=== PATIENT | male | born 1960 | race Caucasian/White ===

== ENCOUNTER 2022-06-08 13:19 | Emergency (ER) | payer MEDICARE, MEDICAID ==
[~2022-06-08] VITALS: Ht 170 cm; Wt 63.5 kg
--- NOTE | 2022-06-08 14:10 | ED GU-Male ---
General Chief Complaint: - Reproductive Stated Complaint: URINATING BLOOD Nursing Triage Note: PT TO TRIAGE WITH C/O SPOTTING BLOOD IN URINE PRIOR TO ARRIVAL. PT ALSO STATES HE HAD TROUBLE URINATING TODAY. PT SAID HE HAS HAD PROSTATE ISSUES IN THE PAST Source: patient Exam Limitations: no limitations (LUCÍA VILLEGAS APRN) History of Present Illness Date Seen by Provider: Jun 08, 2022 Time Seen by Provider: 14:58 Initial Comments 61-year-old male presents with complaints of urinary issues. States he has had reduced output over the last 2 days. States this morning he woke up to go to the bathroom, and only urinated a small amount. States there was a spot of blood after urinating this morning. States he has had this problem before, states he has issues with his prostate. States they placed him on a couple medications at that time and it went away. He is unsure what medications those were. Reports urinary frequency, and dysuria. States he feels like he has to urinate but can't or only goes a small amount. Denies fevers, abdominal pain, nausea, vomiting. Past medical history includes type 2 diabetes, heart conditions with 9 stents, malignant melanoma for which he is in remission, Alzheimer's. States he supposed be on several medications but has been out of them. Recently moved here from [place] and has not yet been able to establish primary care. States he does not drink a lot of water. (LUCÍA VILLEGAS APRN) Allergies and Home Medications Allergies Coded Allergies: amitriptyline (Verified Allergy, Unknown, 06/08/22) Patient Home Medication List Home Medication List Reviewed: Yes (LUCÍA VILLEGAS APRN) Sulfamethoxazole/Trimethoprim (Bactrim Ds Tablet) 1 Each Tablet, 1 EACH PO BID Prescribed by: Lucía Villegas on 06/08/22 151 Tamsulosin HCl (Flomax) 0.4 Mg Cap, 0.4 MG PO DAILY Prescribed by: Lucía Villegas on 06/08/22 1517 Review of Systems Review of Systems Constitutional: see HPI (LUCÍA VILLEGAS APRN) Past Bpekrcx-Mneouf-Brmonw Hx Patient Social History Tobacco Use?: No Use of E-Cig and/or Vaping dev: No Substance use?: No Alcohol Use?: No Pt feels they are or have been: No (LUCÍA VILLEGAS APRN) Immunizations Up To Date Influenza Vaccine Up-to-Date: Yes; Up-to-Date (LUCÍA VILLEGAS APRN) Past Medical History Surgery/Hospitalization HX: DM, AFIB, HLD L HIP REPLACEMENT, NECK SURGERY, BACK SURGERY, L KNEE SURGERY, EYE SURGERY, MELANOMA CANCER (LUCÍA VILLEGAS APRN) Physical Exam Vital Signs Vital Signs - First Documented 06/08/22 13:41 Temp 36.6 Pulse 97 Resp 14 B/P (MAP) 123/81 (95) (DILLON CAMACHO DO) Vital Signs Capillary Refill : (LUCÍA VILLEGAS APRN) Height, Weight, BMI Height: '" Weight: lbs. oz. kg; 21.00 BMI Method: General Appearance: WD/WN, no apparent distress Neck: supple, normal inspection Cardiovascular: regular rate, rhythm, no edema, no gallop, no JVD, no murmur Respiratory: lungs clear, normal breath sounds, no respiratory distress, no accessory muscle use Gastrointestinal: non tender, soft Back: normal inspection, no CVA tenderness Extremities: normal range of motion, normal inspection Neurologic/Psychiatric: alert, normal mood/affect Skin: normal color, warm/dry (LUCÍA VILLEGAS APRN) Progress/Results/Core Measures Suspected Sepsis SIRS Temperature: Pulse: 97 Respiratory Rate: 14 Laboratory Tests 06/08/22 14:29: White Blood Count 4.7 Blood Pressure 123 /81 Mean: 95 Laboratory Tests 06/08/22 14:29: Creatinine 0.99, Platelet Count 115L, Total Bilirubin 0.7 (LUCÍA VILLEGAS APRN) Results/Orders Lab Results Laboratory Tests Test 06/08/22 14:05 06/08/22 14:29 Range/Units Urine Color YELLOW Urine Clarity CLOUDY Urine pH 6.5 5-9 Urine Specific [place] 1.025 H 1.016-1.022 Urine Protein 2+ H NEGATIVE Urine Glucose (UA) 3+ H NEGATIVE Urine Ketones NEGATIVE NEGATIVE Urine Nitrite NEGATIVE NEGATIVE Urine Bilirubin NEGATIVE NEGATIVE Urine Urobilinogen 0.2 < = 1.0 MG/DL Urine Leukocyte Esterase TRACE H NEGATIVE Urine RBC (Auto) 3+ H NEGATIVE Urine RBC 25-50 H /HPF Urine WBC 50-100 H /HPF Urine Squamous Epithelial Cells 0-2 /HPF Urine Crystals NONE /LPF Urine Bacteria NEGATIVE /HPF Urine Casts NONE /LPF Urine Mucus NEGATIVE /LPF Urine Culture Indicated YES White Blood Count 4.7 4.3-11.0 10^3/uL Red Blood Count 4.35 4.30-5.52 10^6/uL Hemoglobin 12.1 L 13.3-17.7 g/dL Hematocrit 37 L 40-54 % Mean Corpuscular Volume 84 80-99 fL Mean Corpuscular Hemoglobin 28 25-34 pg Mean Corpuscular Hemoglobin Concent 33 32-36 g/dL Red Cell Distribution Width 14.7 H 10.0-14.5 % Platelet Count 115 L 130-400 10^3/uL Mean Platelet Volume 9.3 9.0-12.2 fL Immature Granulocyte % (Auto) 0 % Neutrophils (%) (Auto) 67 42-75 % Lymphocytes (%) (Auto) 21 12-44 % Monocytes (%) (Auto) 9 0-12 % Eosinophils (%) (Auto) 2 0-10 % Basophils (%) (Auto) 1 0-10 % Neutrophils # (Auto) 3.2 1.8-7.8 10^3/uL Lymphocytes # (Auto) 1.0 1.0-4.0 10^3/uL Monocytes # (Auto) 0.4 0.0-1.0 10^3/uL Eosinophils # (Auto) 0.1 0.0-0.3 10^3/uL Basophils # (Auto) 0.0 0.0-0.1 10^3/uL Immature Granulocyte # (Auto) 0.0 0.0-0.1 10^3/uL Percent Immature Platelet Fraction 2.9 0.0-7.6 % Sodium Level 137 135-145 MMOL/L Potassium Level 3.6 3.6-5.0 MMOL/L Chloride Level 104 98-107 MMOL/L Carbon Dioxide Level 26 21-32 MMOL/L Anion Gap 7 5-14 MMOL/L Blood Urea Nitrogen 5 L 7-18 MG/DL Creatinine 0.99 0.60-1.30 MG/DL Estimat Glomerular Filtration Rate 88 BUN/Creatinine Ratio 5 Glucose Level 269 H 70-105 MG/DL Calcium Level 9.0 8.5-10.1 MG/DL Corrected Calcium 9.2 8.5-10.1 MG/DL Total Bilirubin 0.7 0.1-1.0 MG/DL Aspartate Amino Transf (AST/SGOT) 50 H 5-34 U/L Alanine Aminotransferase (ALT/SGPT) 46 0-55 U/L Alkaline Phosphatase 249 H 40-136 U/L Total Protein 7.7 6.4-8.2 GM/DL Albumin 3.7 3.2-4.5 GM/DL (DILLON CAMACHO DO) Micro Results Microbiology 06/08/22 Urine Culture - Final, Complete NO GROWTH (DILLON CAMACHO ) Vital Signs/I&O 06/08/22 06/08/22 13:41 15:46 Temp 36.6 Pulse 97 Resp 14 B/P (MAP) 123/81 (95) 119/74 (DILLON CAMACHO DO) Vital Signs/I&O Capillary Refill : (LUCÍA VILLEGAS APRN) Blood Pressure Mean: 95 Progress Note #1: Time: 14:23 Progress Note Patient seen and evaluated, resting comfortably in bed, no acute distress. Based on exam and symptoms concern for UTI. Work-up initiated including CBC, CMP, UA with culture. Progress Note #2: Time: 15:15 Progress Note Labs reviewed. CBC shows decreased hemoglobin 12.1, hematocrit decreased 37, platelet decreased to 115. CMP shows creatinine 0.99, GFR 88, glucose elevated to 69. UA shows 2+ protein, 2+ glucose, trace leukocytes, 3+ RBC, WBC 50-100, negative bacteria. Will treat for urinary tract infection. Considered CT noncontrast due to the RBCs and blood, deferred because patient denies any back pain or abdominal pain. Lab results discussed with patient. Informed patient of his elevated blood sugar. Patient states this is good for him. Patient instructed to follow-up with primary care provider. Patient given discharge directions and return precautions (LUCÍA VILLEGAS APRN) Departure Impression Primary Impression: Urinary tract infection Disposition: 01 HOME, SELF-CARE Condition: Stable Departure-Patient Inst. Decision time for Depature: 15:14 (LUCÍA VILLEGAS APRN) Referrals: NO,LOCAL PHYSICIAN (PCP/Family) Primary Care Physician Patient Instructions: Urinary Tract Infection, Adult (DC) Add. Discharge Instructions: Complete full course of antibiotic, even if you begin to feel better. Take tamsulosin to help with urinary retention. Return for fevers, lower back pain, inability to urinate, recurrent vomiting, or any other new, concerning, or worsening symptoms. Follow-up with primary care provider. All discharge instructions reviewed with patient and/or family. Voiced understanding. Scripts Tamsulosin HCl (Flomax) 0.4 Mg Cap 0.4 MG PO DAILY, #14 CAP 0 Refills Prov: LUCÍA VILLEGAS APRN 06/08/22 Sulfamethoxazole/Trimethoprim (Bactrim Ds Tablet) 1 Each Tablet 1 EACH PO BID for 10 Days, #20 TAB 0 Refills Prov: LUCÍA VILLEGAS APRN 06/08/22 ATTENDING PHYSICIAN NOTE: I WAS PHYSICALLY PRESENT ER PHYSICIAN, BUT I WAS NOT INVOLVED IN ANY DECISION MAKING OR ANY CARE OF THIS PATIENT AND I AM NOT COLLABORATING PHYSICIAN. (DILLON CAMACHO DO) LUCÍA VILLEGAS APRN Jun 08, 2022 14:10 DILLON CAMACHO DO Jun 10, 2022 05:48
[2022-06-08 14:18] LABS: BILIRUBIN,URINE NEGATIVE (NEGATIVE); CLARITY,URINE CLOUDY; COLOR,URINE YELLOW; GLUCOSE, URINE (UA) 3+ (NEGATIVE); KETONES,URINE NEGATIVE (NEGATIVE); LEUKOCYTE ESTERASE ,URINE TRACE (NEGATIVE); NITRITE,URINE NEGATIVE (NEGATIVE); PH,URINE 6.5 (5-9); PROTEIN,URINE 2+ (NEGATIVE)
[2022-06-08 14:31] LABS: BACTERIA,URINE NEGATIVE /HPF; RBC,URINE 25-50 /HPF; SQUAMOUS EPITHELIAL CELL,UR 0-2 /HPF; WBC,URINE 50-100 /HPF
[2022-06-08 14:41] LABS: HEMOGLOBIN 12.1 g/dL (13.3-17.7)
[2022-06-08 14:42] LABS: BASOPHILS % (AUTO) 1 % (0-10); EOSINOPHILS # (AUTO) 0.1 10^3/uL (0.0-0.3); EOSINOPHILS % (AUTO) 2 % (0-10); HEMATOCRIT 37 % (40-54); LYMPHOCYTES % (AUTO) 21 % (12-44); MEAN CORPUSCULAR HEMOGLOBIN 28 pg (25-34); MEAN CORPUSCULAR HGB CONC 33 g/dL (32-36); MEAN CORPUSCULAR VOLUME 84 fL (80-99); MEAN PLATELET VOLUME 9.3 fL (9.0-12.2); MONOCYTES # (AUTO) 0.4 10^3/uL (0.0-1.0); MONOCYTES % (AUTO) 9 % (0-12); NEUTROPHILS # (AUTO) 3.2 10^3/uL (1.8-7.8); NEUTROPHILS % (AUTO) 67 % (42-75); PLATELET COUNT 115 10^3/uL (130-400); WHITE BLOOD COUNT 4.7 10^3/uL (4.3-11.0)
[2022-06-08 14:51] LABS: ALBUMIN 3.7 GM/DL (3.2-4.5)
[2022-06-08 14:52] LABS: POTASSIUM 3.6 MMOL/L (3.6-5.0)
[2022-06-08 14:54] LABS: TOTAL PROTEIN 7.7 GM/DL (6.4-8.2)
[2022-06-08 14:56] LABS: BILIRUBIN,TOTAL 0.7 MG/DL (0.1-1.0)
[2022-06-08 14:58] LABS: CREATININE SERUM 0.99 MG/DL (0.60-1.30)
[2022-06-08] MEDS ORDERED: cefTRIAXone 1,000 MG in SYRINGE-IVPB 0 SYRINGE IV ONE (15:15)
[2022-06-08] MEDS ORDERED: TMSL.4C PO (15:17)
[2022-06-08] MEDS ORDERED: SULF1TAB38 PO (15:17)
[2022-06-08] MEDS ORDERED: cefTRIAXone 1 GM PRE-MIX 50 ML IV NR (15:30)
[2022-06-08 15:46] VITALS: BP 119/74
== END 2022-06-08 15:43 | disposition home or self-care (01) ==
LOC: ER 13:22
DX: N39.0 Urinary tract infection, site not specified (principal)
CPT/HCPCS: 36415; 80053; 81000; 85025; 87088; 99283

== ENCOUNTER 2022-07-22 20:44 | Emergency (ER) | payer MEDICAID, MEDICARE ==
[~2022-07-22] VITALS: Ht 170 cm; Wt 65.8 kg
[~2022-07-22 20:44] MED LIST: SULF1TAB38 PO; TMSL.4C PO
--- NOTE | 2022-07-22 21:01 | ED General ---
General Stated Complaint: ELEV BLOOD SUGAR Source of Information: Patient Exam Limitations: No Limitations History of Present Illness Date Seen by Provider: Jul 22, 2022 Time Seen by Provider: 21:01 Initial Comments This is a well appearing 62 yo male with history of IDDM, malignant melanoma, and FLD to the ER for elevated blood glucose. Was referred to ER from [facility] walk-in for evaluation of elevated blood glucose. In clinic he had glucose over 500 and A1C >14. Referred to ER for further workup. He was able to schedule follow up with DM educator on TuesdayJuly 26 before leaving clinic.Patient presented to clinic stating he needed refill of his insulin. He recently moved to [place] and has yet to establish care with PCP. He arrive 3 hours later from time of report from [facility] provider. States he went home, took a shower and Novolog 20 units just before ED arrival. He is asymptomatic at this time and admits to having frequently high blood glucose that he manages with his Novolog. He is unsure of why he needs evaluated in the emergency department. Allergies and Home Medications Allergies Coded Allergies: amitriptyline (Verified Allergy, Unknown, 06/08/22) Patient Home Medication List Home Medication List Reviewed: Yes Sulfamethoxazole/Trimethoprim (Bactrim Ds Tablet) 1 Each Tablet, 1 EACH PO BID Prescribed by: Anel Villegas on 06/08/221516 Tamsulosin HCl (Flomax) 0.4 Mg Cap, 0.4 MG PO DAILY Prescribed by: Anel Villegas on 06/08/221516 Review of Systems Review of Systems Constitutional: see HPI Past Luidjfe-Qztatw-Qgvyst Hx Past Medical History Surgery/Hospitalization HX: DM, AFIB, HLD L HIP REPLACEMENT, NECK SURGERY, BACK SURGERY, L KNEE SURGERY, EYE SURGERY, MELANOMA CANCER Physical Exam Vital Signs Vital Signs - First Documented 07/22/22 20:54 Temp 37.0 Pulse 96 Resp 20 B/P (MAP) 128/69 (88) Pulse Ox 98 O2 Delivery Room Air Capillary Refill : Height, Weight, BMI Height: '" Weight: lbs. oz. kg; 21.00 BMI Method: General Appearance: No Apparent Distress, WD/WN Eyes: Bilateral Eye Normal Inspection, Bilateral Eye PERRL HEENT: PERRL/EOMI, Normal ENT Inspection, Pharynx Normal, Moist Mucous Membranes Neck: Full Range of Motion, Normal Inspection, Supple Respiratory: Lungs Clear, Normal Breath Sounds, No Accessory Muscle Use Cardiovascular: Regular Rate, Rhythm, No Edema, No Murmur Gastrointestinal: Normal Bowel Sounds, Non Tender, Soft Extremity: Normal Capillary Refill, Normal Inspection, Normal Range of Motion Neurologic/Psychiatric: Alert, Oriented x3, No Motor/Sensory Deficits, Normal Mood/Affect Skin: Normal Color, Warm/Dry Progress/Results/Core Measures Suspected Sepsis SIRS Temperature: Pulse: Respiratory Rate: Laboratory Tests 07/22/22 21:00: White Blood Count 3.0L Blood Pressure / Mean: Laboratory Tests 07/22/22 21:00: Creatinine 1.09, Platelet Count 131, Total Bilirubin 0.8 Results/Orders Lab Results Laboratory Tests Test 07/22/22 20:57 07/22/22 21:00 07/22/22 22:00 Range/Units Glucometer 429 *H 70-110 MG/DL White Blood Count 3.0 L 4.3-11.0 10^3/uL Red Blood Count 4.25 L 4.30-5.52 10^6/uL Hemoglobin 12.1 L 13.3-17.7 g/dL Hematocrit 36 L 40-54 % Mean Corpuscular Volume 85 80-99 fL Mean Corpuscular Hemoglobin 29 25-34 pg Mean Corpuscular Hemoglobin Concent 34 32-36 g/dL Red Cell Distribution Width 14.7 H 10.0-14.5 % Platelet Count 131 130-400 10^3/uL Mean Platelet Volume 9.4 9.0-12.2 fL Immature Granulocyte % (Auto) 0 % Neutrophils (%) (Auto) 48 42-75 % Lymphocytes (%) (Auto) 35 12-44 % Monocytes (%) (Auto) 12 0-12 % Eosinophils (%) (Auto) 4 0-10 % Basophils (%) (Auto) 1 0-10 % Neutrophils # (Auto) 1.4 L 1.8-7.8 10^3/uL Lymphocytes # (Auto) 1.0 1.0-4.0 10^3/uL Monocytes # (Auto) 0.4 0.0-1.0 10^3/uL Eosinophils # (Auto) 0.1 0.0-0.3 10^3/uL Basophils # (Auto) 0.0 0.0-0.1 10^3/uL Immature Granulocyte # (Auto) 0.0 0.0-0.1 10^3/uL Percent Immature Platelet Fraction 2.7 0.0-7.6 % Sodium Level 136 135-145 MMOL/L Potassium Level 3.6 3.6-5.0 MMOL/L Chloride Level 100 98-107 MMOL/L Carbon Dioxide Level 22 21-32 MMOL/L Anion Gap 14 5-14 MMOL/L Blood Urea Nitrogen 7 7-18 MG/DL Creatinine 1.09 0.60-1.30 MG/DL Estimat Glomerular Filtration Rate 78 BUN/Creatinine Ratio 6 Glucose Level 389 H 70-105 MG/DL Calcium Level 9.4 8.5-10.1 MG/DL Corrected Calcium 9.6 8.5-10.1 MG/DL Total Bilirubin 0.8 0.1-1.0 MG/DL Aspartate Amino Transf (AST/SGOT) 84 H 5-34 U/L Alanine Aminotransferase (ALT/SGPT) 66 H 0-55 U/L Alkaline Phosphatase 253 H 40-136 U/L Total Protein 7.4 6.4-8.2 GM/DL Albumin 3.7 3.2-4.5 GM/DL Smear Scan YES Urine Color YELLOW Urine Clarity CLEAR Urine pH 6.0 5-9 Urine Specific [place] <=1.005 1.016-1.022 Urine Protein NEGATIVE NEGATIVE Urine Glucose (UA) 3+ H NEGATIVE Urine Ketones NEGATIVE NEGATIVE Urine Nitrite NEGATIVE NEGATIVE Urine Bilirubin NEGATIVE NEGATIVE Urine Urobilinogen 0.2 < = 1.0 MG/DL Urine Leukocyte Esterase NEGATIVE NEGATIVE Urine RBC (Auto) NEGATIVE NEGATIVE Urine RBC RARE /HPF Urine WBC NONE /HPF Urine Squamous Epithelial Cells 0-2 /HPF Urine Crystals NONE /LPF Urine Bacteria NEGATIVE /HPF Urine Casts NONE /LPF Urine Mucus NEGATIVE /LPF Urine Culture Indicated NO My Orders Orders - [facility] Cbc With Automated Diff (07/22/22 20:49) Comprehensive Metabolic Panel (07/22/22 20:49) Ed Iv/Invasive Line Start (07/22/22 20:49) Accucheck Stat ONCE (07/22/22 20:49) Ua Culture If Indicated (07/22/22 20:49) Vital Signs/I&O 07/22/22 07/22/22 20:54 22:01 Temp 37.0 Pulse 96 78 Resp 20 18 B/P (MAP) 128/69 (88) 122/82 Pulse Ox 98 98 O2 Delivery Room Air Room Air Capillary Refill : Progress Note : Progress Note VSS. POC BG-429. Asymptomatic. Has Novolog present with him and record of his daily glucose checks, levels ranging from 200's-400's. Denies systemic symptoms. Will check basic labs, including UA and renal function. Notes he had UTI last month but has been asymptomatic since completing antibiotics. CBC: WBC-3.0, Hgb-12.1, Hct-36, PLT-131, CMP: Na-136, K-3.6, glucose-389, AST- 84, ALT-66, ALP-253. UA-3+ glucose, otherwise unremarkable. Has history of elevated AST/ALT likely related to his history of FLD and ALP due to history of malignant melanoma. Reviewed diet choices and ensured he has sufficient insulin to get to his follow up appointment. Treatment plan reviewed and he is agreeable with plan. Departure Impression Primary Impression: Type 2 diabetes mellitus with hyperglycemia Disposition: HOME, SELF-CARE Condition: Stable Departure-Patient Inst. Decision time for Depature: 21:55 Referrals: NNAMDI RAMOS DO (PCP/Family) Primary Care Physician Patient Instructions: High Blood Sugar, Adult ED Add. Discharge Instructions: Plan: 1. Keep follow up with primary care provider on Tuesday as scheduled. 2. Return to the ER if you run out medication or have persistently elevated blood sugar over 500. 3. Drink plenty of fluids to stay hydrated. 4. Return for any new, concerning, or worsening symptoms. Copy Copies To 1: [facility]/KARINA SONG APRN Jul 22, 2022 21:01
[2022-07-22 21:10] LABS: EOSINOPHILS # (AUTO) 0.1 10^3/uL (0.0-0.3); HEMOGLOBIN 12.1 g/dL (13.3-17.7)
[2022-07-22 21:12] LABS: BASOPHILS % (AUTO) 1 % (0-10); EOSINOPHILS % (AUTO) 4 % (0-10); HEMATOCRIT 36 % (40-54); LYMPHOCYTES % (AUTO) 35 % (12-44); MEAN CORPUSCULAR HEMOGLOBIN 29 pg (25-34); MEAN CORPUSCULAR HGB CONC 34 g/dL (32-36); MEAN CORPUSCULAR VOLUME 85 fL (80-99); MEAN PLATELET VOLUME 9.4 fL (9.0-12.2); MONOCYTES # (AUTO) 0.4 10^3/uL (0.0-1.0); MONOCYTES % (AUTO) 12 % (0-12); NEUTROPHILS # (AUTO) 1.4 10^3/uL (1.8-7.8); NEUTROPHILS % (AUTO) 48 % (42-75); PLATELET COUNT 131 10^3/uL (130-400)
[2022-07-22 21:15] LABS: SMEAR SCAN COMMENT YES
[2022-07-22 21:27] LABS: ALBUMIN 3.7 GM/DL (3.2-4.5); BILIRUBIN,TOTAL 0.8 MG/DL (0.1-1.0); CALCIUM 9.4 MG/DL (8.5-10.1); CREATININE SERUM 1.09 MG/DL (0.60-1.30); POTASSIUM 3.6 MMOL/L (3.6-5.0); TOTAL PROTEIN 7.4 GM/DL (6.4-8.2)
[2022-07-22 22:01] VITALS: BP 122/82
[2022-07-22 22:06] LABS: BILIRUBIN,URINE NEGATIVE (NEGATIVE); CLARITY,URINE CLEAR; COLOR,URINE YELLOW; GLUCOSE, URINE (UA) 3+ (NEGATIVE); KETONES,URINE NEGATIVE (NEGATIVE); LEUKOCYTE ESTERASE ,URINE NEGATIVE (NEGATIVE); NITRITE,URINE NEGATIVE (NEGATIVE); PROTEIN,URINE NEGATIVE (NEGATIVE)
[2022-07-22 22:15] LABS: BACTERIA,URINE NEGATIVE /HPF; RBC,URINE RARE /HPF; SQUAMOUS EPITHELIAL CELL,UR 0-2 /HPF
== END 2022-07-22 22:07 | disposition home or self-care (01) ==
LOC: EDUNIT# 20:44 → ER 20:47
DX: E11.65 Type 2 diabetes mellitus with hyperglycemia (principal); Z87.19 Personal history of other diseases of the digestive system; Z79.4 Long term (current) use of insulin; Z28.310 Unvaccinated for COVID-19
CPT/HCPCS: 36415; 80053; 81000; 82947; 85025

== ENCOUNTER 2022-08-06 16:37 | Observation (INO) | payer MEDICARE, MEDICAID ==
[~2022-08-06] VITALS: Ht 170.2 cm; Wt 63.6 kg
[2022-08-06] MEDS ORDERED: NS IV 1000 ML 1,000 ML IV STA ×3 (17:02→19:53)
--- NOTE | 2022-08-06 17:07 | ED General ---
General Chief Complaint: Glucose Problems Stated Complaint: HYPERGLYCEMIA Nursing Triage Note: PT TO [facility] BY [facility] WITH C/O HYPERGLYCEMIA. EMS BS READ 380. PT STATES HE HAD TO CHANGE TO LISPRO NOVOLOG DUE TO INSURANCE CHANGE Source of Information: Patient Exam Limitations: No Limitations History of Present Illness Date Seen by Provider: Aug 06, 2022 Time Seen by Provider: 17:04 Initial Comments Patient is a 62-year-old male with a history of hyperglycemia, coronary artery disease who presents ED for elevated blood sugar, abdominal pain. States his blood sugar has been reading high on his glucometer for the past 3 days. Patient contacted EMS today secondary to feeling dizzy, achiness, upper abdominal pain with headache. Patient states he has had intermittent upper abdominal pain for the past month worse over the past few days. Reports nausea . reports generalized head pain. States dizziness and achiness over the past few days with high blood sugar reading. Patient had had his insulin switch to lispro 2 weeks ago. Patient states his blood sugar has not been control. Patient denies of any visual changes, chest pain, shortness of breath, cough, vomiting, diarrhea, dysuria or frequent urination. Allergies and Home Medications Allergies Coded Allergies: amitriptyline (Verified Allergy, Unknown, 06/08/22) Patient Home Medication List Home Medication List Reviewed: Yes Sulfamethoxazole/Trimethoprim (Bactrim Ds Tablet) 1 Each Tablet, 1 EACH PO BID Prescribed by: Anel Villegas on 06/08/221516 Tamsulosin HCl (Flomax) 0.4 Mg Cap, 0.4 MG PO DAILY Prescribed by: Anel Villegas on 06/08/221516 Review of Systems Review of Systems Constitutional: No chills, No diaphoresis, No fever; malaise, weakness EENTM: No ear pain, No blurred vision, No double vision, No mouth pain, No mouth swelling Respiratory: No cough, No dyspnea on exertion Cardiovascular: No chest pain, No edema Gastrointestinal: No abdominal pain, No diarrhea, No nausea, No vomiting Genitourinary: No decreased output, No discharge Musculoskeletal: No back pain Skin: No change in color, No change in hair/nails Psychiatric/Neurological: Headache; Denies Numbness, Denies Paresthesia All Other Systems Reviewed Negative Unless Noted: Yes Past Pgnuebm-Houlos-Ludojs Hx Patient Social History Tobacco Use?: No Use of E-Cig and/or Vaping dev: No Substance use?: No Alcohol Use?: No Pt feels they are or have been: No Immunizations Up To Date Influenza Vaccine Up-to-Date: Yes; Up-to-Date Past Medical History Surgery/Hospitalization HX: DM, AFIB, HLD, HTN L HIP REPLACEMENT, NECK SURGERY, BACK SURGERY, L KNEE SURGERY, EYE SURGERY, MELANOMA CANCER, ESOPHAGUS BANDS Physical Exam Vital Signs Vital Signs - First Documented 08/06/22 16:43 Temp 37.3 Pulse 112 Resp 16 B/P (MAP) 108/65 (79) Capillary Refill : Height, Weight, BMI Height: '" Weight: lbs. oz. kg; 22.00 BMI Method: General Appearance: No Apparent Distress, WD/WN Eyes: Bilateral Eye Normal Inspection, Bilateral Eye PERRL, Bilateral Eye EOMI HEENT: PERRL/EOMI, TMs Normal, Normal ENT Inspection, Pharynx Normal Neck: Full Range of Motion, Normal Inspection, Non Tender, Supple Respiratory: Chest Non Tender, Lungs Clear, Normal Breath Sounds, No Accessory Muscle Use, No Respiratory Distress Cardiovascular: Regular Rate, Rhythm, No Edema, No Gallop, No JVD, No Murmur Gastrointestinal: Normal Bowel Sounds, No Organomegaly, No Pulsatile Mass, Non Tender, Soft Back: Normal Inspection, No CVA Tenderness, No Vertebral Tenderness Extremity: Normal Capillary Refill, Normal Inspection, Normal Range of Motion, Non Tender Neurologic/Psychiatric: Alert, Oriented x3, No Motor/Sensory Deficits Skin: Normal Color, Warm/Dry Progress/Results/Core Measures Suspected Sepsis SIRS Temperature: Pulse: 112 Respiratory Rate: 16 Laboratory Tests 08/06/22 16:44: White Blood Count 2.8L Blood Pressure 108 /65 Mean: 79 Laboratory Tests 08/06/22 16:44: Creatinine 1.01, Platelet Count 127L, Total Bilirubin 0.6 Results/Orders Lab Results Laboratory Tests Test 08/06/22 16:43 08/06/22 16:44 08/06/22 17:10 08/06/22 19:21 Range/Units Glucometer 351 H 210 H 70-110 MG/DL White Blood Count 2.8 L 4.3-11.0 10^3/uL Red Blood Count 3.93 L 4.30-5.52 10^6/uL Hemoglobin 11.5 L 13.3-17.7 g/dL Hematocrit 34 L 40-54 % Mean Corpuscular Volume 86 80-99 fL Mean Corpuscular Hemoglobin 29 25-34 pg Mean Corpuscular Hemoglobin Concent 34 32-36 g/dL Red Cell Distribution Width 14.6 H 10.0-14.5 % Platelet Count 127 L 130-400 10^3/uL Mean Platelet Volume 9.6 9.0-12.2 fL Immature Granulocyte % (Auto) 0 % Neutrophils (%) (Auto) 54 42-75 % Lymphocytes (%) (Auto) 21 12-44 % Monocytes (%) (Auto) 22 H 0-12 % Eosinophils (%) (Auto) 3 0-10 % Basophils (%) (Auto) 1 0-10 % Neutrophils # (Auto) 1.5 L 1.8-7.8 10^3/uL Lymphocytes # (Auto) 0.6 L 1.0-4.0 10^3/uL Monocytes # (Auto) 0.6 0.0-1.0 10^3/uL Eosinophils # (Auto) 0.1 0.0-0.3 10^3/uL Basophils # (Auto) 0.0 0.0-0.1 10^3/uL Immature Granulocyte # (Auto) 0.0 0.0-0.1 10^3/uL Neutrophils % (Manual) 59 % Lymphocytes % (Manual) 21 % Monocytes % (Manual) 19 % Eosinophils % (Manual) 1 % Basophils % (Manual) 0 % Band Neutrophils 0 % Percent Immature Platelet Fraction 2.0 0.0-7.6 % Blood Morphology Comment NORMAL Sodium Level 134 L 135-145 MMOL/L Potassium Level 3.5 L 3.6-5.0 MMOL/L Chloride Level 103 98-107 MMOL/L Carbon Dioxide Level 19 L 21-32 MMOL/L Anion Gap 12 5-14 MMOL/L Blood Urea Nitrogen 7 7-18 MG/DL Creatinine 1.01 0.60-1.30 MG/DL Estimat Glomerular Filtration Rate 85 BUN/Creatinine Ratio 7 Glucose Level 383 H 70-105 MG/DL Calcium Level 8.9 8.5-10.1 MG/DL Corrected Calcium 9.5 8.5-10.1 MG/DL Total Bilirubin 0.6 0.1-1.0 MG/DL Aspartate Amino Transf (AST/SGOT) 58 H 5-34 U/L Alanine Aminotransferase (ALT/SGPT) 43 0-55 U/L Alkaline Phosphatase 232 H 40-136 U/L Total Protein 6.9 6.4-8.2 GM/DL Albumin 3.3 3.2-4.5 GM/DL Lipase 403 H 8-78 U/L Beta-Hydroxybutyrate (Chem panel) 0.08 0.00-0.27 MMOL/L Serum Alcohol < 10 <10 MG/DL Monoscreen NEGATIVE NEGATIVE Urine Color YELLOW Urine Clarity CLEAR Urine pH 6.0 5-9 Urine Specific [place] <=1.005 1.016-1.022 Urine Protein NEGATIVE NEGATIVE Urine Glucose (UA) 3+ H NEGATIVE Urine Ketones NEGATIVE NEGATIVE Urine Nitrite POSITIVE H NEGATIVE Urine Bilirubin NEGATIVE NEGATIVE Urine Urobilinogen 0.2 < = 1.0 MG/DL Urine Leukocyte Esterase NEGATIVE NEGATIVE Urine RBC (Auto) NEGATIVE NEGATIVE Urine RBC 0-2 /HPF Urine WBC 5-10 H /HPF Urine Squamous Epithelial Cells RARE /HPF Urine Crystals NONE /LPF Urine Bacteria NEGATIVE /HPF Urine Casts NONE /LPF Urine Mucus NEGATIVE /LPF Urine Culture Indicated YES Urine Opiates Screen NEGATIVE NEGATIVE Urine Oxycodone Screen NEGATIVE NEGATIVE Urine Methadone Screen NEGATIVE NEGATIVE Urine Propoxyphene Screen NEGATIVE NEGATIVE Urine Barbiturates Screen NEGATIVE NEGATIVE Ur Tricyclic Antidepressants Screen NEGATIVE NEGATIVE Urine Phencyclidine Screen NEGATIVE NEGATIVE Urine Amphetamines Screen NEGATIVE NEGATIVE Urine Methamphetamines Screen NEGATIVE NEGATIVE Urine Benzodiazepines Screen NEGATIVE NEGATIVE Urine Cocaine Screen NEGATIVE NEGATIVE Urine Cannabinoids Screen NEGATIVE NEGATIVE Micro Results Microbiology 08/06/22 Urine Culture - Preliminary, Resulted Probable Coag Negative Staph My Orders Orders - ELSY MORENO Cbc With Automated Diff (08/06/22 17:02) Comprehensive Metabolic Panel (08/06/22 17:02) Beta Hydroxybutyrate (08/06/22 17:02) Lipase (08/06/22 17:02) Ua Culture If Indicated (08/06/22 17:02) Drug Screen Stat (Urine) (08/06/22 17:02) Ns Iv 1000 Ml (Sodium Chloride 0.9%) (08/06/22 17:02) Alcohol (08/06/22 17:02) Manual Differential (08/06/22 16:44) Urine Culture (08/06/22 17:10) Ct Abdomen/Pelvis W (08/06/22 17:37) Insulin (Regular) Human (Novolin R (Per (08/06/22 17:45) Ceftriaxone Iv/Im (Rocephin Iv/Im) (08/06/22 17:38) Iohexol Injection (Omnipaque 350 Mg/Ml 1 (08/06/22 17:45) Ns (Ivpb) (Sodium Chloride 0.9% Ivpb Bag (08/06/22 17:45) Chest 1 View, Ap/Pa Only (08/06/22 17:43) Monotest (08/06/22 19:37) Ns Iv 1000 Ml (Sodium Chloride 0.9%) (08/06/22 19:47) Ns Iv 1000 Ml (Sodium Chloride 0.9%) (08/06/22 19:53) Potassium Chloride (Tablet) (K Dur Table (08/06/22 20:00) Medications Given in ED Vital Signs/I&O 08/06/22 16:43 Temp 37.3 Pulse 112 Resp 16 B/P (MAP) 108/65 (79) 08/07/22 00:00 Intake Total 1050 ml Balance 1050 ml Capillary Refill : Blood Pressure Mean: 79 Point of Care Testing Finger Stick Blood Glucose: 351 Blood Glucose Action Taken: PROVIDER NOTIFIED Departure Communication (PCP) Patient is a 62-year-old male who presents to the ED for a few different complaints. Reports history of pancreatitis, hyperglycemia, hypertension. Recently switched his insulin to lispro few weeks ago and states his blood sugar has not been well controlled. States he has been having intermittent upper abdominal pain for the past month worse over the past few days nauseous without vomiting or diarrhea. No history of alcohol use. Patient reports achiness and dizziness and lightheadedness today. Patient was brought to ED by EMS. States his blood sugar was running high on his glucometer. Blood sugar right above 300 on arrival. Patient with a soft blood pressure. Map above 65. Concerning for dehydration. Started back on his lisinopril 2 weeks ago. Patient white blood count 2.8, hemoglobin 11.7, platelets 127. Last white blood cell count 3.0 July 22. Patient will need further evaluation. Denies history of cancer, mitchel pus, autoimmune diseases, bone marrow disorders. Potential infection related. Patient chemistry showed a sodium of 134, potassium of 3.5. Normal anion gap. Normal kidney function. Normal beta quant. Urinalysis without evidence of ketones. Does not appear in DKA. Chemistry AST 58, alk phos 232. lipase 403. Urinalysis positive for nitrites concerning for infection. Patient last microbiology report of his urine was in May of this year which showed no growth. Patient Was given dose of Rocephin 1 g. Due to elevated lipase change in white blood count and abdominal pain CT abdomen pelvis was ordered. He Did have some mild tenderness in his upper abdomen. CT abdomen pelvis was negative for acute abnormality besides mild edema within the mesentery along the pericolic gutters. Nonspecific and may be reactive. Could be related to elevated lipase suggesting pancreatitis. Unclear if this pancreatitis is more acute versus chronic but could explain some of his symptoms today. Does have splenomegaly. Normal Monospot. Patient received 2 L of fluid here in the ER and 1 L by EMS. Slight improvement of the blood pressure but still soft. Patient is a thin habitus. Appeared normotensive last visit. Patient was given 20 ml equivalent oral potassium. Recommend admission for IV fluids, pancreatitis. Currently on clear liquid diet for mild pancreatitis. patient was discussed with Dr. Bragg hospitalist for [facility]. Recommends sliding scale B, Pain control as needed, liter fluid with potassium 20 ml equivalent. Impression Primary Impression: Hyperglycemia Additional Impressions: Hypotension Pancreatitis Disposition: ADMITTED INPATIENT Condition: Stable Admissions Decision to Admit Reason: Admit from ER (General) Decision to Admit/Date: Aug 06, 2022 Time/Decision to Admit Time: 19:59 Departure-Patient Inst. Referrals: NNAMDI RAMOS DO (PCP/Family) Primary Care Physician ELSY MORENO Aug 06, 2022 17:07
[2022-08-06 17:09] LABS: EOSINOPHILS # (AUTO) 0.1 10^3/uL (0.0-0.3); EOSINOPHILS % (AUTO) 3 % (0-10); HEMATOCRIT 34 % (40-54); HEMOGLOBIN 11.5 g/dL (13.3-17.7); MEAN CORPUSCULAR HGB CONC 34 g/dL (32-36)
[2022-08-06 17:11] LABS: BASOPHILS % (AUTO) 1 % (0-10); LYMPHOCYTES # (AUTO) 0.6 10^3/uL (1.0-4.0); LYMPHOCYTES % (AUTO) 21 % (12-44); MEAN CORPUSCULAR HEMOGLOBIN 29 pg (25-34); MEAN CORPUSCULAR VOLUME 86 fL (80-99); MEAN PLATELET VOLUME 9.6 fL (9.0-12.2); MONOCYTES # (AUTO) 0.6 10^3/uL (0.0-1.0); MONOCYTES % (AUTO) 22 % (0-12); NEUTROPHILS # (AUTO) 1.5 10^3/uL (1.8-7.8); NEUTROPHILS % (AUTO) 54 % (42-75); PLATELET COUNT 127 10^3/uL (130-400); WHITE BLOOD COUNT 2.8 10^3/uL (4.3-11.0)
[2022-08-06 17:16] LABS: BILIRUBIN,URINE NEGATIVE (NEGATIVE); CLARITY,URINE CLEAR; COLOR,URINE YELLOW; GLUCOSE, URINE (UA) 3+ (NEGATIVE); KETONES,URINE NEGATIVE (NEGATIVE); LEUKOCYTE ESTERASE ,URINE NEGATIVE (NEGATIVE); NITRITE,URINE POSITIVE (NEGATIVE); PROTEIN,URINE NEGATIVE (NEGATIVE)
[2022-08-06 17:19] LABS: ALBUMIN 3.3 GM/DL (3.2-4.5); CHLORIDE 103 MMOL/L (98-107); POTASSIUM 3.5 MMOL/L (3.6-5.0); SODIUM 134 MMOL/L (135-145)
[2022-08-06 17:20] LABS: CALCIUM 8.9 MG/DL (8.5-10.1)
[2022-08-06 17:21] LABS: GLUCOSE 383 MG/DL (70-105); TOTAL PROTEIN 6.9 GM/DL (6.4-8.2)
[2022-08-06 17:22] LABS: CARBON DIOXIDE 19 MMOL/L (21-32)
[2022-08-06 17:23] LABS: BILIRUBIN,TOTAL 0.6 MG/DL (0.1-1.0)
[2022-08-06 17:25] LABS: ALKALINE PHOSPHATASE 232 U/L (40-136); CREATININE SERUM 1.01 MG/DL (0.60-1.30); GFR ESTIMATED 85
[2022-08-06 17:26] LABS: BUN/CREATININE RATIO 7
[2022-08-06 17:26] LABS: BACTERIA,URINE NEGATIVE /HPF; RBC,URINE 0-2 /HPF; SQUAMOUS EPITHELIAL CELL,UR RARE /HPF
[2022-08-06 17:28] LABS: ALANINE AMINOTRANSFERASE 43 U/L (0-55); LIPASE 403 U/L (8-78)
[2022-08-06 17:35] LABS: AMPHETAMINE SCREEN, URINE NEGATIVE (NEGATIVE); BARBITURATE SCREEN URINE NEGATIVE (NEGATIVE); BENZODIAZEPINES SCREEN URINE NEGATIVE (NEGATIVE); CANNABINOID SCREEN, URINE NEGATIVE (NEGATIVE); COCAINE SCREEN URINE NEGATIVE (NEGATIVE); METHADONE STAT NEGATIVE (NEGATIVE); OPIATE SCREEN URINE NEGATIVE (NEGATIVE); OXYCODONE STAT NEGATIVE (NEGATIVE); PROPOXYPHENE STAT NEGATIVE (NEGATIVE); TRICYCLIC ANTIDEPRESSANTS SCRE NEGATIVE (NEGATIVE)
[2022-08-06] MEDS ORDERED: cefTRIAXone IV/IM 1,000 MG in NS (IVPB) 50 ML IV STA (17:38)
[2022-08-06 17:40] LABS: BAND NEUTROPHILS 0 %; BASOPHILS % (MANUAL) 0 %; EOSINOPHILS % (MANUAL) 1 %; LYMPHOCYTES % (MANUAL) 21 %; MONOCYTES % (MANUAL) 19 %; NEUTROPHILS % (MANUAL) 59 %; RBC MORPH NORMAL
[2022-08-06] MEDS ORDERED: inSUlin (REGULAR) HUMAN 1 UNIT/0.01 ML (CHARGE PER UNIT) SC ONE (17:45)
[2022-08-06] MEDS ORDERED: IOHEXOL 350 MG/ML 100 ML (OMNIPAQUE 350) VIAL IV ONE (17:45)
[2022-08-06] MEDS ORDERED: NS 100 ML (IVPB) BAG IV ONE (17:45)
--- NOTE | 2022-08-06 18:16 | Diagnostic Imaging Report ---
EXAMINATION: Chest 1 view. HISTORY: Cough. COMPARISON: None available. FINDINGS: Heart size and pulmonary vasculature are normal. The lungs are clear without consolidation, pleural effusion or pneumothorax. The osseous structures are intact. A left-sided cardiac device is present. IMPRESSION: No acute radiographic abnormality in the chest. Dictated by: Dictated on workstation # [id number]
--- NOTE | 2022-08-06 18:43 | Diagnostic Imaging Report ---
EXAMINATION: CT abdomen and pelvis with intravenous contrast. TECHNIQUE: Multiple contiguous axial images were obtained through the abdomen and pelvis after the uneventful administration of intravenous contrast. All CT scans use one or more of the following dose optimizing techniques: automated exposure control, MA and/or KvP adjustment based on patient size and exam type or iterative reconstruction. HISTORY: Upper abd pain COMPARISON: None available. FINDINGS: Lung bases: Bibasilar dependent atelectasis. Solid organs: The liver is normal without focal lesion. The gallbladder is surgically absent. There is no biliary ductal dilation. Pancreas is normal. Spleen is enlarged. Adrenal glands are normal. The kidneys are normal without hydronephrosis. Bowel: The stomach and small bowel are normal without obstruction. The colon is normal. The appendix is nonvisualized. There is mild stranding within the right lower quadrant without loculated fluid collection or free air. Peritoneum: Trace fluid within the bilateral paracolic gutters. There is mild haziness of the mesentery which is nonspecific. No suspicious lymphadenopathy. Vasculature: Calcification of the aorta without aneurysm. Musculoskeletal: Degenerative changes of the spine without suspicious osseous lesion or compression fracture. Surgical changes from left hip arthroplasty. Pelvis: The prostate gland is normal. The urinary bladder is normal. IMPRESSION: 1. No acute abnormality in the abdomen or pelvis. 2. Mild edema within the mesentery as well as along the paracolic gutters. This is nonspecific and may be reactive. Recommend correlation with pancreatic enzymes. 3. Splenomegaly. Dictated by: Dictated on workstation # [id number]
[2022-08-06] MEDS ORDERED: KCL 20 MEQ TAB (K-DUR) PO ONE (20:00)
[2022-08-06] MEDS ORDERED: HYDROmorphone 2 MG/ML VIAL (DILAUDID) IV PRN (21:30)
[2022-08-06] MEDS ORDERED: ACETAMINOPHEN 500 MG TAB (TYLENOL) PO PRN (21:30)
[2022-08-06] MEDS: NS W/KCL 20 MEQ/L 1,000 ML IV SCH (21:54)
[2022-08-07] VITALS: BP 126/71
[2022-08-07 04:20] VITALS: BP 115/71
[2022-08-07] MEDS: NS W/KCL 20 MEQ/L 1,000 ML IV SCH (04:20)
[2022-08-07] MEDS ORDERED: inSUlin ASPART (NovoLOG) 1 UNIT/0.01 ML (CHARGE PER UNIT) SC SCH ×2 (06:00→10:00)
[2022-08-07 06:25] LABS: BASOPHILS % (AUTO) 1 % (0-10); EOSINOPHILS # (AUTO) 0.1 10^3/uL (0.0-0.3); EOSINOPHILS % (AUTO) 4 % (0-10); HEMATOCRIT 32 % (40-54); HEMOGLOBIN 10.8 g/dL (13.3-17.7); LYMPHOCYTES # (AUTO) 0.7 10^3/uL (1.0-4.0); LYMPHOCYTES % (AUTO) 27 % (12-44); MEAN CORPUSCULAR HEMOGLOBIN 29 pg (25-34); MEAN CORPUSCULAR HGB CONC 33 g/dL (32-36); MEAN CORPUSCULAR VOLUME 86 fL (80-99); MEAN PLATELET VOLUME 9.4 fL (9.0-12.2); MONOCYTES # (AUTO) 0.5 10^3/uL (0.0-1.0); MONOCYTES % (AUTO) 19 % (0-12); NEUTROPHILS # (AUTO) 1.3 10^3/uL (1.8-7.8); NEUTROPHILS % (AUTO) 49 % (42-75); PLATELET COUNT 110 10^3/uL (130-400); WHITE BLOOD COUNT 2.6 10^3/uL (4.3-11.0)
[2022-08-07 06:45] LABS: CALCIUM 8.3 MG/DL (8.5-10.1); CREATININE SERUM 0.85 MG/DL (0.60-1.30); POTASSIUM 3.9 MMOL/L (3.6-5.0)
[2022-08-07 08:22] VITALS: BP 123/69
[2022-08-07 08:24] LABS: TRIGLYCERIDES 107 MG/DL (<150); VLDL CHOLESTEROL 21 MG/DL (5-40)
[2022-08-07 08:29] LABS: CHOLESTEROL 246 MG/DL (< 200)
[2022-08-07 08:30] LABS: HDL CHOLESTEROL 57 MG/DL (40-60)
--- NOTE | 2022-08-07 09:12 | History & Physical-Hospitalist ---
History of Present Illness HPI/Chief Complaint Patient is a 62-year-old male with a history of hyperglycemia, coronary artery disease who presents ED for elevated blood sugar, abdominal pain. States his blood sugar has been reading high on his glucometer for the past 3 days. Patient contacted EMS today secondary to feeling dizzy, achiness, upper abdominal pain with headache. Patient states he has had intermittent upper abdominal pain for the past month worse over the past few days. Reports nausea . reports generalized head pain. States dizziness and achiness over the past few days with high blood sugar reading. Patient had had his insulin switch to lispro 2 weeks ago. Patient states his blood sugar has not been control. Patient denies of any visual changes, chest pain, shortness of breath, cough, vomiting, diarrhea, dysuria or frequent urination. Upon my arrival the patient reports that his abdominal pain had improved and he was feeling hungry. He reports he had 1 other bout of pancreatitis about 2 years ago and is about 9 years out from cholecystectomy. He denied any issues with pancreatitis around his cholecystectomy that he recalls. He did see a GI specialist several years ago thinks he had an upper and lower endoscopy at the time but is not aware as to whether or not he has ever undergone endoscopic ultrasound or ERCP. He does not recall seriously elevated cholesterol or triglycerides/fat level in the blood. He was recently started on a blood pressure medicine and his bolus insulin for insurance purposes was switched to lisinopril that he had been taking 6 to 8 units before meals he was not on basal insulin. He reports that this had been working for him up until the onset of his abdominal pain when he started getting himself even 30 units and was having trouble getting his blood sugars down. He denies chest pain or shortness of breath. He denies pain radiating through to his back reports that it is pain predominantly custodial between the umbilicus and the epigastrium. It is centered denies side related pain. He has had no melena or bright red blood per rectum and no change in bowel habit. He reports that he does not drink alcohol and does not have any known medication allergies causing pancreatitis he does report intolerance to amitriptyline. Date Seen 08/07/22 Time Seen by a Provider: 09:07 Attending Physician Joce Aponte DO PCP Admitting Physician: Felipe Alston MD Attending Physician: Felipe Alston MD Referring Physician Date of Admission Aug 06, 2022 at 20:48 Home Medications & Allergies Home Medications Reviewed patient Home Medication Reconciliation performed by pharmacy medication reconciliations senior controls technician and/or nursing. Patients Allergies have been reviewed. Allergies Allergies Coded Allergies amitriptyline (Verified Allergy, Unknown, 06/08/22) Past Appiymo-Ndskwa-Lcthsk Hx Patient Social History Tobacco Use?: No Smoking Status: Former Smoker Use of E-Cig and/or Vaping dev: No Substance use?: No Alcohol Use?: No Pt feels they are or have been: No Immunizations Up To Date Tetanus Booster (TDap): More Than 5 Years Hepatitis A: No Hepatitis B: No Current Status Advance Directives: No Communicates: Verbally Primary Language: Azerbaijani Preferred Spoken Language: Azerbaijani Is interpretation needed?: No Sensory deficits: Vision impairment Implanted or Applied Medical D: Orthopedic hardware, Pacemaker Review of Systems Constitutional: see HPI Physical Exam Physical Exam Vital Signs Vital Signs - First Documented 08/06/22 08/06/22 16:43 20:50 Temp 37.3 Pulse 112 Resp 16 B/P (MAP) 108/65 (79) Pulse Ox 95 O2 Delivery Room Air Capillary Refill : Height, Weight, BMI Height: '" Weight: lbs. oz. kg; 21.95 BMI Method: General Appearance: No Apparent Distress, WD/WN HEENT: Normal ENT Inspection Respiratory: Chest Non Tender, Lungs Clear, Normal Breath Sounds, No Accessory Muscle Use, No Respiratory Distress Cardiovascular: Regular Rate, Rhythm, No Edema, No Gallop, No JVD, No Murmur, Normal Peripheral Pulses Gastrointestinal: No Organomegaly, Soft, Other (Supraumbilical pain to pal pation without guarding no distention abdomen is soft. Bowel sounds present but hypoactive) Extremity: Normal Capillary Refill, Normal Inspection, Normal Range of Motion, Non Tender, No Calf Tenderness, No Pedal Edema Results Results/Procedures Labs Laboratory Tests 08/06/22 16:44 08/07/22 06:11 Patient resulted labs reviewed. Assessment/Plan Admission Diagnosis 1. Recurrent pancreatitis improving lipase levels down significantly patient reports that he feels hungry. He is tolerating liquids without difficulty will advance to a 1200-calorie ADA diet and we will obtain a lipid panel to rule out severe hypertriglyceridemia as a contributing factor especially in light of uncontrolled diabetes. Discussed the need for further GI evaluation specifically endoscopic ultrasound considering the current nature of his diabetes especially if triglyceride levels are not noted to be severely elevated. Further work-up to be done as an outpatient provided symptoms continue to improve. 2. Uncontrolled Type II diabetes we will switch to basal bolus insulin from current sliding scale and continue to monitor blood sugars. 3. Pancytopenia which is stable on review of CBCs the patient had done in the emergency room and May and June of this year reportedly felt to be due to either chemotherapy from previous melanoma for which there has been no recurren ce or nonalcoholic fatty liver disease. 4. History of melanoma reportedly in remission. Admission Status: Inpatient Order (span 2 midnights) Reason for Inpatient Admission: See admission diagnosis FELIPE ALSTON MD Aug 07, 2022 09:12
[2022-08-07] MEDS ORDERED: CHLORASEPTIC LOZENGE MM PRN (11:30)
[2022-08-07 11:37] VITALS: BP 122/73
[2022-08-07] MEDS: inSUlin ASPART (NovoLOG) 1 UNIT/0.01 ML (CHARGE PER UNIT) SC SCH ×5 (12:09→21:27)
[2022-08-07 15:43] VITALS: BP 127/67
[2022-08-07] MEDS ORDERED: BENZOCAINE LOZENGES 1 EACH LOZENGE PO PRN (15:45)
[2022-08-07 19:22] VITALS: BP 130/72
[2022-08-08 00:12] VITALS: BP 132/72
[2022-08-08 03:47] VITALS: BP 136/74
[2022-08-08] MEDS: inSUlin ASPART (NovoLOG) 1 UNIT/0.01 ML (CHARGE PER UNIT) SC SCH ×2 (06:37→06:38)
[2022-08-08 08:07] VITALS: BP 126/73
[2022-08-08] MEDS ORDERED: INSU100V5 SQ (09:27)
[2022-08-08] MEDS ORDERED: INSU100V16 SC (09:27)
--- NOTE | 2022-08-08 09:32 | Discharge Summary ---
Diagnosis/Chief Complaint Date of Admission Aug 06, 2022 at 20:48 Date of Discharge Discharge Date: Aug 08, 2022 Admission Diagnosis 1. Recurrent pancreatitis improving lipase levels down significantly patient reports that he feels hungry. He is tolerating liquids without difficulty will advance to a 1200-calorie ADA diet and we will obtain a lipid panel to rule out severe hypertriglyceridemia as a contributing factor especially in light of uncontrolled diabetes. Discussed the need for further GI evaluation specifically endoscopic ultrasound considering the current nature of his diabetes especially if triglyceride levels are not noted to be severely elevated. Further work-up to be done as an outpatient provided symptoms continue to improve. 2. Uncontrolled Type II diabetes we will switch to basal bolus insulin from current sliding scale and continue to monitor blood sugars. 3. Pancytopenia which is stable on review of CBCs the patient had done in the emergency room and May and June of this year reportedly felt to be due to either chemotherapy from previous melanoma for which there has been no recurrence or nonalcoholic fatty liver disease. 4. History of melanoma reportedly in remission. Primary Care Joce Aponte V DO Discharge Summary Discharge Physical Exam Allergies: Coded Allergies: amitriptyline (Verified Allergy, Unknown, 06/08/22) Vitals & I&Os Vital Signs Date Time Temp Pulse Resp B/P (MAP) Pulse Ox O2 Delivery O2 Flow Rate FiO2 08/08/22 08:07 37.2 97 16 126/73 (90) 97 Room Air General Appearance: No Apparent Distress Respiratory: Chest Non Tender, Lungs Clear, Normal Breath Sounds, No Accessory Muscle Use, No Respiratory Distress Cardiovascular: Regular Rate, Rhythm, No Edema, No Gallop, No JVD, No Murmur, Normal Peripheral Pulses Gastrointestinal: Normal Bowel Sounds, No Organomegaly, No Pulsatile Mass, Non Tender, Soft Hospital Course Was the Problem List Reviewed?: Yes Patient is a 62-year-old male with a history of hyperglycemia, coronary artery disease who presents ED for elevated blood sugar, abdominal pain. States his blood sugar has been reading high on his glucometer for the past 3 days. Patient contacted EMS today secondary to feeling dizzy, achiness, upper a bdominal pain with headache. Patient states he has had intermittent upper abdominal pain for the past month worse over the past few days. Reports nausea . reports generalized head pain. States dizziness and achiness over the past few days with high blood sugar reading. Patient had had his insulin switch to lispro 2 weeks ago. Patient states his blood sugar has not been control. Patient denies of any visual changes, chest pain, shortness of breath, cough, vomiting, diarrhea, dysuria or frequent urination. Upon my arrival the patient reports that his abdominal pain had improved and he was feeling hungry. He reports he had 1 other bout of pancreatitis about 2 years ago and is about 9 years out from cholecystectomy. He denied any issues with pancreatitis around his cholecystectomy that he recalls. He did see a GI specialist several years ago thinks he had an upper and lower endoscopy at the time but is not aware as to whether or not he has ever undergone endoscopic ultrasound or ERCP. He does not recall seriously elevated cholesterol or triglycerides/fat level in the blood. He was recently started on a blood pressure medicine and his bolus insulin for insurance purposes was switched to lisinopril that he had been taking 6 to 8 units before meals he was not on basal insulin. He reports that this had been working for him up until the onset of his abdominal pain when he started getting himself even 30 units and was having trouble getting his blood sugars down. He denies chest pain or shortness of breath. He denies pain radiating through to his back reports that it is pain predominantly senior care between the umbilicus and the epigastrium. It is centered denies side related pain. He has had no melena or bright red blood per rectum and no change in bowel habit. He reports that he does not drink alcohol and does not have any known medication allergies causing pancreatitis he does report intolerance to amitriptyline. Hospital course: The following morning the patient's lipase was down from 400 range to around 100 and he is feeling better. He tolerated a low-fat diet without any exacerbation of abdominal pain. Discussed need for GI follow-up and consideration for endoscopic ultrasound for recurrent pancreatitis. He does have CGM monitoring capability we did add Levemir 20 units the evening before discharge and his blood sugar this morning was 106. He reports he is motivated to maintain a lower glycemic diet and so I advised that he take 16 units of Levemir which was sent electronically to [facility] or and he will continue likely his typical 6 to 10 units of lispro insulin prior to meals. He is to follow-up with his community health provider to see about getting set up ultimately for GI referral and ongoing monitoring of his insulin requiring type 2 diabetes. Labs (last 24 hrs) Laboratory Tests 08/07/22 12:02: Glucometer 235H 08/07/22 15:47: Glucometer 308H 08/07/22 20:45: Glucometer 238H 08/08/22 05:31: Glucometer 109 Microbiology 08/06/22 Urine Culture - Preliminary, Resulted Probable Coag Negative Staph Patient resulted labs reviewed. Pending Labs Laboratory Tests 08/08/22 05:31: Glucometer 109 Discussion & Recommendations Discharge Planning: >30 minutes discharge planning Discharge Home Medications: Active Scripts Active Novolog (Insulin Aspart) 100 Unit/Ml Susp 10 Unit SC AC 30 Days Levemir (Insulin Determir) 100 Unit/Ml Soln 16 Unit SQ HS 30 Days Flomax (Tamsulosin HCl) 0.4 Mg Cap 0.4 Mg PO DAILY Bactrim Ds Tablet (Sulfamethoxazole/Trimethoprim) 1 Each Tablet 1 Each PO BID 10 Days Instructions to patient/family Please see electronic discharge instructions given to patient. Copy Copies To 1: LINDA KERR MARK D MD Aug 08, 2022 09:32
[2022-08-08 10:15] VITALS: BP 126/73
== END 2022-08-08 09:24 | disposition home or self-care (01) ==
LOC: EDUNIT# 16:37 → ER 16:38 → 4TH 20:48 → UNDOADMOB 20:48 → 4TH 21:30 → UNDODISOB 08-08 09:24
PROVIDERS: ADMIT Internal Medicine; ATTEND Internal Medicine
DX: K86.1 Other chronic pancreatitis (principal); E11.65 Type 2 diabetes mellitus with hyperglycemia; I95.9 Hypotension, unspecified; D61.818 Other pancytopenia; Z85.820 Personal history of malignant melanoma of skin
CPT/HCPCS: 36415; 71045; 74177; 80048; 80053; 80061; 80306; 80320; 81000; 82010; 82947; 83690; 85007; 85025; 85027; 86308; 87077; 87088; 87184; 96361; G0378